=== PATIENT | female | born 1955 | race African-American/Black ===

== ENCOUNTER 2017-10-18 07:23 | Day surgery (SDC) | payer BC, OTHER ==
[2017-10-11 11:26] VITALS: BMI 27.4
[2017-10-18] MEDS ORDERED: PROPOFOL 20 ML ONE ×2 (07:26)
[2017-10-18] MEDS ORDERED: LIDOCAINE HCL/PF 2% SDV 5ML VIAL ONE (07:45)
[2017-10-18 09:03] VITALS: TEMP 98
[2017-10-18 09:54] VITALS: BP 108/74; PULSE 75
== END 2017-10-18 09:30 | disposition home or self-care (01) ==
LOC: FASU-ENDO 07:23
PROVIDERS: ATTEND Internal Medicine Gastroenterology
PROC: 0DJD8ZZ Inspection of Lower Intestinal Tract, Via Natural or Artificial Opening Endoscopic (ICD-10-PCS; principal; 2017-10-18 08:23)
DX: Z12.11 Encounter for screening for malignant neoplasm of colon (principal)